=== PATIENT | female | born 2000 | race African-American/Black ===

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

== ENCOUNTER 2023-05-13 12:18 | Emergency (ER) | payer OTHER ==
[2023-05-13 12:27] VITALS: BP 118/88; O2SAT 100
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
[2023-05-13] MEDS: BUTALB/ACETAM/CAFF 50/325/40MG TABLET PO STA (13:46)
--- NOTE | 2023-05-13 13:46 | CT Report ---
PROCEDURE: Head WO INDICATIONS: head injury, cont headache x 24 hours TECHNIQUE: Noncontrast 4.5 mm thick angled axial sections acquired from the foramen magnum to the vertex. For r adiation dose reduction, the following was used: automated exposure control, adjustment of mA and/or kV according to patient size. COMPARISON: None. FINDINGS: Image quality: Excellent. CSF spaces: Basal cisterns are patent. No extra-axial fluid collections. Ventricles are normal in size and shape. Brain: No midline shift. No intracranial masses or hemorrhage. Soto-white matter interface is norm al. Skull and face: Calvarium and visualized facial bones are intact, without suspicious lesions. Sinuses: Visualized sinuses and mastoids are clear. IMPRESSION: No acute intracranial pathology. Reviewed by: Carter Quiñonez MD on 05/13/2023 1:44 PM PST Approved by: Carter Quiñonez MD on 05/13/2023 1:44 PM PST Station ID: [id number]
== END 2023-05-13 14:06 | disposition home or self-care (01) ==
LOC: ED 12:18
DX: S09.90XA Unspecified injury of head, initial encounter (principal); W51.XXXA Accidental striking against or bumped into by another person, initial encounter
CPT/HCPCS: 70450; 99283; 99284; A9270